=== PATIENT | female | born 1955 | race Caucasian/White ===

== ENCOUNTER → 2018-01-16 14:40 | Outpatient (CLI) | payer SELFPAY ==
[2018-01-16 17:18] LABS: Hemoglobin A1c 8.7 % (4.2-6.3)
== END ==
PROVIDERS: Family Provider Internal Medicine; PCP Internal Medicine; Visit Provider Internal Medicine
DX: E11.9 Type 2 diabetes mellitus without complications (principal)
CPT/HCPCS: 36415; 83036

== ENCOUNTER 2018-02-21 06:59 | Day surgery (SDC) | payer SELFPAY ==
[2018-02-21] VITALS (7 sets, daily range): BP systolic 113–124; BP diastolic 69–78; PULSE 61–79; RESP 16; TEMP 36.5–36.7; O2SAT 97–100; BMI 25.1
--- NOTE | 2018-02-21 08:29 | COLBX_PTH ---
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 Najma Carter MD : 1955 BED: DIS: 02/21/2018 SPEC #: [id number] RECD: 02/21/18 13:31 STATUS: RICARDO SHARON #: [id number] KUSHAL: 02/21/18 08:[address]: Najma Carter DEPT: SURGICAL PATHOLOGY RECD BY: Alexandr Sotomayor ENTERED: 02/21/18 14:27 SP TYPE: COLON BX OTHR DR: Dr. Ja Pringle MD Tissues: Transverse colon Procedures: Surgery Specimen Level IV HEADER OPERATION: Colonoscopy with biopsy PRE-OP DIAGNOSIS: Screening TISSUE SUBMITTED: Transverse biopsy MICROSCOPIC DIAGNOSIS Transverse colon, biopsy: Melanosis coli. AM:vianca 02/22/18 MICROSCOPIC DESCRIPTION Slides are reviewed. GROSS DESCRIPTION Received in fixative is one container labeled with the patient's name and designated transverse biopsy. The specimen consists of two irregular fragments of light lunsford soft tissue that in aggregate measure 0.7 x 0.3 x 0.1 cm. The specimen is totally submitted in one cassette. / AM:vianca 02/21/18 TC:5 CPT: 63772
[2018-02-21 08:51] LABS: Bedside Glucose 159 mg/dL (70-110)
--- NOTE | 2018-02-21 09:34 | PCM.OPRPT ---
Report of Operation Date of Procedure: 02/21/18 Pre-Operative Diagnosis: Screening for colon cancer Post-Operative Diagnosis: Tiny white mucosal lesions throughout the colon, biopsied Surgery/Procedure Performed:: Colonoscopy with biopsy Type of Anesthesia:: MAC Anesthesiologist: Rubens Telles Specimen's removed: Transverse colon biopsy of lunsford-white lesions Estimated Blood Loss (mL): Minimal Description of Procedure: Procedure: Colonoscopy After reviewing the risks benefits, the patient was deemed in satisfactory condition to undergo procedure. After obtaining informed consent, the scope was passed under direct visualization. Throughout the procedure, the patient's blood pressure pulse and position saturations were monitored continuously anesthesia. The colonoscope was introduced through the anus and advanced to the cecum, identified by the appendiceal orifice, IC valve and transillumination. The colonoscopy was performed without difficulty. The patient tolerated procedure well. Quality of bowel prep was good. Findings: The perianal and digital rectal exam were normal. There were tiny white mucosal lesions throughout the entire colon. These were biopsied in the transverse colon. Otherwise the colon (entire examined portion) appeared normal. Retroflexed view of the distal rectum and anal verge was normal and showed no anal or rectal abnormalities Impression: 1. Any white mucosal lesions throughout colon, biopsied 2. The distal rectal and anal verge were normal on retroflexed view. Recommendations: Await biopsies Repeat colonoscopy in 5-10 years for screening purposes depending on biopsy Addendum: pathology c/w melanosis coli, repeat colonoscopy in 10 years. Also d/w pt via phone. - Complications None
--- NOTE | 2018-02-21 09:37 | OP.PCM_ITS ---
Report of Operation Date of Procedure: 02/21/18 Pre-Operative Diagnosis: Screening for colon cancer Post-Operative Diagnosis: Tiny white mucosal lesions throughout the colon, biopsied Surgery/Procedure Performed:: Colonoscopy with biopsy Type of Anesthesia:: MAC Anesthesiologist: Rubens Telles Specimen's removed: Transverse colon biopsy of lunsford-white lesions Estimated Blood Loss (mL): Minimal Description of Procedure: Procedure: Colonoscopy After reviewing the risks benefits, the patient was deemed in satisfactory condition to undergo procedure. After obtaining informed consent, the scope was passed under direct visualization. Throughout the procedure, the patient's blood pressure pulse and position saturations were monitored continuously anesthesia. The colonoscope was introduced through the anus and advanced to the cecum, identified by the appendiceal orifice, IC valve and transillumination. The colonoscopy was performed without difficulty. The patient tolerated procedure well. Quality of bowel prep was good. Findings: The perianal and digital rectal exam were normal. There were tiny white mucosal lesions throughout the entire colon. These were biopsied in the transverse colon. Otherwise the colon (entire examined portion ) appeared normal. Retroflexed view of the distal rectum and anal verge was normal and showed no anal or rectal abnormalities Impression: 1. Any white mucosal lesions throughout colon, biopsied 2. The distal rectal and anal verge were normal on retroflexed view. Recommendations: Await biopsies Repeat colonoscopy in 5-10 years for screening purposes depending on biopsy Addendum: pathology c/w melanosis coli, repeat colonoscopy in 10 years. Also d/ w pt via phone. - Complications None
== END 2018-02-21 09:30 | disposition home or self-care (01) ==
LOC: EN 07:06 → AC 07:06
PROVIDERS: Family Provider Internal Medicine; PCP Internal Medicine; Visit Provider Surgery
PROC: 0DJD8ZZ Inspection of Lower Intestinal Tract, Via Natural or Artificial Opening Endoscopic (ICD-10-PCS; CPT 45378; principal; 2018-02-21 07:55)
DX: Z12.11 Encounter for screening for malignant neoplasm of colon (principal); K63.89 Other specified diseases of intestine; E11.9 Type 2 diabetes mellitus without complications; Z79.84 Long term (current) use of oral hypoglycemic drugs; Z79.899 Other long term (current) drug therapy
CPT/HCPCS: 45380; 82962; 88305; J7120

== ENCOUNTER → 2018-09-25 10:50 | Outpatient (CLI) | payer SELFPAY ==
[2018-09-25 11:47] LABS: Absolute Lymphocyte Count 2.05 X10^3/ul (0.83-4.51); Absolute Neutrophil Count 4.2 X10^3/uL (2.0-7.7); Basophil# 0.01 X10^3/uL; Basophil% 0.1 % (0-1); Eosinophil# 0.12 X10^3/uL; Eosinophils% 1.7 % (0-5); Hematocrit 43.1 % (37-47); Hemoglobin 14.7 g/dl (12.0-15.0); Lymphocyte # 2.05 X10^3/ul (4.0); Lymphocyte % 29.9 % (19-41); Mean Corp Hgb Conc 34.1 g/gl (32-36); Mean Corpuscular Hgb 28.7 pg (27.0-32.0); Mean Platelet Vol. 10.8 fl (6.2-12.0); Monocyte% 7.3 % (0-10); Neutrophil # 4.17 X10^3/uL (2.7-7.7); Neutrophil % 60.9 % (47-70); Platelet Count 190 K/mm3 (150-450); RBC Distribution Width CV 12.9 % (11.6-14.6); RBC Distribution Width SD 38.8 fl (35.1-43.9); Red Blood Count 5.13 M/mm3 (4.2-5.4); White Blood Count 6.9 K/mm3 (4.4-11.0)
[2018-09-25 11:48] LABS: POSITIVE COUNT NO; POSITIVE DIFFERENTIAL NO; POSITIVE MORPHOLOGY NO
[2018-09-25 12:20] LABS: Vitamin D,25 Hydroxy 29.2 ng/mL (29.95-100.01)
[2018-09-25 12:24] LABS: Anion Gap 5 (5-15); BUN 11 mg/dL (7-18); BUN/Creat Ratio 15.9 RATIO (10-20); Calcium,Total 8.9 mg/dL (8.5-10.1); Chloride 99 mmol/L (98-107); Cholesterol 169 mg/dL (200); Creatinine, Serum 0.69 mg/dL (0.55-1.02); EST Glomerular Filtration Rate 91 mL/min (>60); Est Glom Filt Rate - Afr Amer 110 mL/min (>60); Glucose 200 mg/dL (74-106); High Density Lipoprotein 67 mg/dL; Potassium 4.1 mmol/L (3.5-5.1); Sodium Level 136 mmol/L (136-145); Thyroid Stim Hormone (TSH) 0.48 uIU/mL (0.358-3.74); Triglycerides 61 mg/dL; Very Low Density Lipoprotein 12 mg/dL (5-40)
[2018-09-25 12:25] LABS: Microalbumin,Random Urine 5.6 mg/L (NO RANGE EST.); Microalbumin:Creatinine Ratio 8.5 mg/g CRE (<30 mg/g CRE)
== END ==
PROVIDERS: Family Provider Internal Medicine; PCP Internal Medicine; Referring Provider Nurse Practitioner Family; Visit Provider Nurse Practitioner Family
DX: E11.9 Type 2 diabetes mellitus without complications (principal); E78.5 Hyperlipidemia, unspecified; E55.9 Vitamin D deficiency, unspecified; Z13.29 Encounter for screening for other suspected endocrine disorder
CPT/HCPCS: 36415; 80048; 80061; 82043; 82306; 82570; 83036; 84443; 85025

== ENCOUNTER → 2018-10-30 13:28 | Outpatient (CLI) | payer SELFPAY ==
--- NOTE | 2018-10-30 13:34 | BD_ITS ---
STUDY: DUAL ENERGY X-RAY ABSORPTIOMETRY / DXA REASON FOR EXAM: Female, 62 years old. The patient is postmenopausal. No loss of height. TECHNIQUE: Bone Mineral Density (BMD) measurements of lumbar spine and right hip were obtained. The patient is status post left hip replacement. COMPARISON: None. FINDINGS: Lumbar Spine (L1-L4): g/cm2 (1.298) / T-score (1.1) / Z-score (2.5) Findings are suggestive of normal bone density with a low fracture risk. Right Femur Total: g/cm2 (0.976) / T-score (-0.3) / Z-score (0.8) Right Femoral Neck: g/cm2 (0.991) / T-score (-0.3) / Z-score (1.0) BD/Dexa Bone Density Study IMPRESSION: The patient is considered normal as outlined below according to World Dejuan Organization (WHO) criteria with a low fracture risk. Reference Information: The T-score is the number of standard deviations above or below the standard which is normal for young adults at their peak bone mineral density. The World Health Organization (WHO) interprets the T-scores as follows: Above -1 Normal bone density Between -1 and -2.5 Osteopenia Equal to / or below -2.5 Osteoporosis As a practical clinical guideline, osteopenia may be graded as follows: Mild -1 through -1.5 Moderate -1.6 through -2.0 Severe -2.1 through -2.4 The Z-score is the number of standard deviations above or below age-matched controls. A Z-score of less than -1.5 would be considered abnormal. References: 1. NIH Osteoporosis and Related Bone Diseases http://www.osteo.org 2. International Society for Clinical Densitometry http://www.iscd.org 3. National Osteoporosis Foundation http://www.nof.org Electronically Signed: Avila Lewis MD at 15:39 EST Tel [phone], Service support ,
== END ==
PROVIDERS: Family Provider Internal Medicine; PCP Internal Medicine; Visit Provider Nurse Practitioner Family
DX: Z13.820 Encounter for screening for osteoporosis (principal); Z78.0 Asymptomatic menopausal state
CPT/HCPCS: 77080

== ENCOUNTER → 2020-01-02 | Outpatient (CLI) | payer SELFPAY ==
--- NOTE | 2020-01-02 | IMM_PTH ---
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 Jero Almeida MD : 1955 BED: DIS: 01/02/2020 SPEC #: [id number] RECD: 01/06/20 12:18 STATUS: RICARDO REQ #: [id number] KUSHAL: 01/02/20 00:[address]: Jero Almeida DEPT: IMMUNOHISTOCHEMISTRY RECD BY: Leonora Craft Tissues: Right breast, NOS Procedures: CALPONIN-1 (add) CK5-6 (add) CK8 (add) E-CAD (add) HER2 RENEE (add) KI-67 (add) P53 (add) PA (add) P40 (add) ER (initial) PHYSICIAN & INSTITUTION [place] [address] SPECIMEN INFORMATION: Tissue Source: Right breast, ultrasound-guided needle core biopsy Clinical Info: Right breast mass Specimen Number: [id number] CPT code: 83633, 32790 x6, 24965 x3 METHODOLOGY: Deparaffinized sections of prefer/formalin-fixed tissue or PAP/DQ stained slides are incubated with monoclonal/polyclonal antibodies/oligonucleotide probes. Localization is made via biotin free immunoperoxidase method. Appropriate controls are performed and reacted as expected. Results on target cell population are indicated in the following table: RESULTS: ANTIBODY / CLONE RESULT E-Cad (ECH-6) positive CK8 (38trioS03) positive Calponin-1 (LI304O) negative CK5-6 (D5 & 1684) negative P40 (BC28) negative P53 (DO-7) positive, rare cells, weak Ki-67 (30-9) positive, low MORPHOMETRIC ANALYSIS ER (clone 6F11) >95%, strong intensity PA (clone 16/1E2) 75%, strong intensity Her-2Neu (clone CB11) 0 The prognostic test for HER2 is performed on formalin-fixed paraffin embedded tissue. A 3+ (positive) staining pattern is defined as intense, homogeneous, complete, circumferential membranous staining in >10% of contiguous tumor cells. A similar weak (2+) staining pattern is interpreted as equivocal. DELLA follow-up testing is recommended for all equivocal cases. Positivity/negativity for ER/PA is reported if > or < 1% of the tumor cells are immuno- reactive, respectively. The ASCO/CAP criteria is used for scoring. Reference: Journal of Clinical Oncology, 2013; 31:6831-7606 & 2010; 16:7969-0493. Duration of fixation: 78.5 Hrs; Sample Adequate: Yes. These assays have not been validated on decalcified tissues. Results should be interpreted with caution given the likelihood of false negativity on decalcified specimens. These tests were developed and their performance characteristics determined by [facility]. They may not have been cleared or approved by the U.S. Food and Drug Administration. The FDA has determined that such clearance or approval is not necessary. The above immunohistochemical/dualISH markers are ordered and reviewed by the Pathologist. INTERPRETATION: Right breast, ultrasound-guided needle core biopsy: Invasive ductal carcinoma, nuclear grade 2. Positive for estrogen receptors (favorable prognostic indicator). Positive for progesterone receptors (favorable prognostic indicator). Negative for overexpression of BKK1svf. SJ:vianca 01/07/20
--- NOTE | 2020-01-02 13:00 | BRBX_PTH ---
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 Jero Almeida MD : 1955 BED: DIS: 01/02/2020 SPEC #: [id number] RECD: 01/02/20 14:00 STATUS: RICARDO SHARON #: [id number] KUSHAL: 01/02/20 13:[address]: Jero Almeida DEPT: SURGICAL PATHOLOGY RECD BY: Alexandr Sotomayor Tissues: Right breast, NOS Procedures: Surgery Specimen Level IV HEADER OPERATION: Ultrasound-guided needle core biopsy right breast PRE-OP DIAGNOSIS: Right breast mass TISSUE SUBMITTED: Right breast biopsy ISCHEMIC TIME: <30 seconds FIXATION TIME: 78.5 hours MICROSCOPIC DIAGNOSIS Right breast, ultrasound-guided needle core biopsy: Invasive ductal carcinoma, nuclear grade 2 (1.2 cm in greatest length). See comment. SJ:vianca 01/06/20 COMMENT The tumor also shows focal necrosis. Immunohistochemistry ([id number]) supports the above diagnosis. ER/UT/Rvg3yss studies are being performed on sections of tumor and the results from this study will be reported separately ([id number]). Case has been reviewed in consultation with Dr. Latham who concurs with the above diagnosis. IDC:AM MICROSCOPIC DESCRIPTION Slides are reviewed. GROSS DESCRIPTION Received in fixative is one container labeled with the patient's name and designated right breast biopsy. The specimen consists of a single core of lunsford-white soft tissue measuring 1.5 cm in length and 0.1 cm in average diameter. The specimen is submitted in its entirety in one cassette. / AM:vianca 01/03/20 TC:0 CPT: 79126 ADDENDUM ADDENDUM ADDENDUM ADDENDUM ADDENDUM ADDENDUM ADDENDUM ADDENDUM ADDENDUM ADDENDUM 02/25/2020 09:45 ADDENDUM 02/25/2020 09:45 ADDENDUM 02/25/2020 09:45 ADDENDUM 02/25/2020 09:45 ADDENDUM 02/25/2020 09:45 This addendum is added to incorporate an outside pathology consultation report. The case was examined at [facility] (#[id number]) and the following diagnosis was rendered. Right breast, ultrasound-guided needle core biopsy: Invasive ductal carcinoma, provisional histologic grade 2. Please see complete above mentioned consultation report in EMR
[2020-01-02 13:19] VITALS: BMI 24.1
== END | disposition home or self-care (01) ==
LOC: LABSPEC 01-03 10:44
PROVIDERS: Visit Provider Surgery
DX: C50.911 Malignant neoplasm of unspecified site of right female breast (principal)
CPT/HCPCS: 88305; 88341; 88342

== ENCOUNTER → 2020-01-14 11:06 | Outpatient (CLI) | payer SELFPAY ==
[2020-01-02 13:19] VITALS: BMI 24.1
--- NOTE | 2020-01-14 11:17 | MRI_ITS ---
STUDY: BILATERAL BREAST MR WITHOUT AND WITH CONTRAST REASON FOR EXAM: Female, 64 years old. RIGHT breast CA -- checking size and if lymph node involvement, patient refusing mamm, rt bx 01/02/20 TECHNIQUE: Multi-sequence multi-echo imaging of both breasts was performed with a dedicated breast coil. T1-weighted and T2-weighted images were performed before the administration of contrast. T1-weighted images were also performed after the administration of IV dotarem 13 ml without complications. COMPARISON: None. Patient refuses mammograms. No prior ultrasound or breast-related exams are available for review. FINDINGS: RIGHT BREAST: The breast tissue is fatty with no background enhancement. There is a 6.1 x 4.5 cm irregularly marginated, heterogeneous, abnormal enhancing mass seen in the superior and lateral aspect of the right breast. This mass is located approximately 4 cm from the nipple. This does correlate to the area that was biopsied and shown to represent a malignancy. No additional masses are seen in the right breast. No abnormal right axillary lymph nodes are seen. LEFT BREAST: The breast tissue is fatty with no background enhancement. There are no abnormal enhancing masses or areas of non-mass enhancement in the left breast. There are no enlarged or abnormal lymph nodes. There is no abnormality in the visualized regions of the chest or liver. MRI/Breast Bilateral W/O and W IMPRESSION: There is a malignant appearing mass in the right breast. Surgical consultation is recommended as well as radiation oncology and medical oncology consultation. Short-term 6 month follow-up mammogram of the right breast is recommended if the patient opts to have a lumpectomy. CATEGORY: BIRADS Category 6: Known Biopsy-Proven Malignancy - Appropriate Action Should Be Taken. A letter regarding these results will be sent to the patient by the facility within 30 days. Electronically Signed: Kayla Mendoza DO at 9:41 EST Tel , Service support ,
== END ==
PROVIDERS: PCP Internal Medicine; Referring Provider Surgery; Visit Provider Surgery
DX: C50.919 Malignant neoplasm of unspecified site of unspecified female breast (principal)
CPT/HCPCS: 77049; A9575; A4216; C8908

== ENCOUNTER → 2021-01-05 12:46 | Outpatient (CLI) | payer MEDICARE, BC, SELFPAY ==
[2020-01-16 14:26] VITALS: BMI 24.1
--- NOTE | 2021-01-05 12:54 | BD_ITS ---
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 COMPARISON: Comparison is made with prior study dated 10/30/2018. FINDINGS: Lumbar Spine (L1-L4): g/cm2 (1.375) / T-score (1.5) / Z-score (3.0) Findings are suggestive of normal bone density with a low fracture risk. Right Femur Total: g/cm2 (0.945) / T-score (-0.5) / Z-score (0.7) Right Femoral Neck: g/cm2 (1.005) / T-score (-0.2) / Z-score (1.2) The T-Scores on the most recent prior examination were: Lumbar Spine (L1-L4): There has been worsening of bone density since the previous examination. Right Femur Total: which represents a worsening of 3.2%. BD/Dexa Bone Density Study IMPRESSION: The patient is considered normal as outlined below according to World Dejuan Organization (WHO) criteria with a low fracture risk. There has been worsening of bone density since the previous examination. Reference Information: The T-score is the number of standard deviations above or below the standard which is normal for young adults at their peak bone mineral density. The World Health Organization (WHO) interprets the T-scores as follows: Above -1 Normal bone density Between -1 and -2.5 Osteopenia Equal to / or below -2.5 Osteoporosis As a practical clinical guideline, osteopenia may be graded as follows: Mild -1 through -1.5 Moderate -1.6 through -2.0 Severe -2.1 through -2.4 The Z-score is the number of standard deviations above or below age-matched controls. A Z-score of less than -1.5 would be considered abnormal. References: 1. NIH Osteoporosis and Related Bone Diseases www osteo.org 2. International Society for Clinical Densitometry www iscd.org 3. National Osteoporosis Foundation www nof.org Electronically Signed: Avila Lewis MD at 14:05 EST , Service support ,
== END ==
PROVIDERS: PCP Family Medicine; Referring Provider Family Medicine; Visit Provider Family Medicine
DX: Z78.0 Asymptomatic menopausal state (principal)
CPT/HCPCS: 77080

== ENCOUNTER 2021-04-14 14:15 | Outpatient (CLI) | payer MEDICARE, BC, SELFPAY ==
[2021-04-14] VITALS (7 sets, daily range): BP systolic 105–124; BP diastolic 60–73; PULSE 88–93; RESP 16–18; TEMP 36.9–37.7; O2SAT 94–98; BMI 24.1; BMI 24.4
[2021-04-14] MEDS: 0.9% Saline Lock 10 ML Syringe IV ×2 (15:16→16:07)
== END 2021-04-14 17:15 | disposition home or self-care (01) ==
LOC: ICUOUT 14:18 → ICU 14:18
PROVIDERS: PCP Family Medicine; Referring Provider Nurse Practitioner Family; Visit Provider Nurse Practitioner Family
DX: Z23 Encounter for immunization (principal); U07.1 COVID-19; E11.9 Type 2 diabetes mellitus without complications
CPT/HCPCS: J7050; M0243; A4216; Q0240

== ENCOUNTER → 2023-01-25 | Outpatient (CLI) | payer BC, MEDICAID, SELFPAY ==
--- NOTE | 2023-01-25 08:37 | BD_ITS ---
STUDY: DUAL ENERGY X-RAY ABSORPTIOMETRY / DXA REASON FOR EXAM: Female, 67 years old. M85.89 TECHNIQUE: Bone Mineral Density (BMD) measurements of lumbar spine and right hip were obtained. COMPARISON: Comparison is made with prior study dated January 05, 2021. FINDINGS: Lumbar Spine (L1-L4): g/cm2 (1.106) / T-score (0.5) / Z-score (2.4) Findings are suggestive of normal bone density with a low fracture risk. Right Femur Total: g/cm2 (0.871) / T-score (-0.6) / Z-score (0.8) Right Femoral Neck: g/cm2 (0.802) / T-score (-0.4) / Z-score (1.2) The T-Scores on the most recent prior examination were: Lumbar Spine (L1-L4): There has been worsening of bone density since the previous examination. Right Femur Total: which represents a worsening of 1.2%. BD/Dexa Bone Density Study IMPRESSION: The patient is considered normal as outlined below according to World Dejuan Organization (WHO) criteria with a low fracture risk. There has been worsening of bone density since the previous examination. Reference Information: The T-score is the number of standard deviations above or below the standard which is normal for young adults at their peak bone mineral density. The World Health Organization (WHO) interprets the T-scores as follows: Above -1 Normal bone density Between -1 and -2.5 Osteopenia Equal to / or below -2.5 Osteoporosis As a practical clinical guideline, osteopenia may be graded as follows: Mild -1 through -1.5 Moderate -1.6 through -2.0 Severe -2.1 through -2.4 The Z-score is the number of standard deviations above or below age-matched controls. A Z-score of less than -1.5 would be considered abnormal. References: 1. NIH Osteoporosis and Related Bone Diseases www osteo.org 2. International Society for Clinical Densitometry www iscd.org 3. National Osteoporosis Foundation www nof.org Electronically Signed: Avila Lewis MD at 13:42 EST ,
== END | disposition home or self-care (01) ==
PROVIDERS: PCP Family Medicine; Visit Provider Internal Medicine Hematology & Oncology
DX: Z13.820 Encounter for screening for osteoporosis (principal); Z79.811 Long term (current) use of aromatase inhibitors; M85.89 Other specified disorders of bone density and structure, multiple sites
CPT/HCPCS: 77080

== ENCOUNTER 2024-07-15 10:45 | Emergency (ER) | payer MEDICARE, SELFPAY ==
[2024-07-15 10:45] VITALS: BP 140/84; PULSE 89; RESP 14; TEMP 36.6; O2SAT 96; BMI 26.5
--- NOTE | 2024-07-15 11:12 | CT_ITS ---
STUDY: CT ABDOMEN AND PELVIS WITH CONTRAST REASON FOR EXAM: Female, 68 years old. Left flank pain and left groin pain. RADIATION DOSAGE (If Supplied By Facility): CTDIvol = ( 10.48 ) mGy, DLP = ( 707.20 ) mGycm TECHNIQUE: Transaxial images were obtained from the dome of the diaphragm to the symphysis pubis without oral contrast. IV 100mL Isovue-370 was administered. Sagittal and coronal images were reconstructed. Individualized dose optimization techniques were used for this CT. COMPARISON: None. FINDINGS: The patient is status post right mastectomy. Calcified granuloma in the anterior aspect of the left lower lobe. The visualized portions of the heart are within normal limits. Normal liver. Normal gallbladder and extrahepatic biliary system. Normal spleen. Normal pancreas. Normal bilateral adrenal glands. Normal right kidney. Normal left kidney. There is a small hiatal hernia. Normal small intestine. There are scattered colonic diverticula consistent with diverticulosis. The appendix is visualized and appears normal. Normal abdominal aorta. Normal inferior vena cava. Normal retroperitoneum. Normal urinary bladder. There is absence of the uterus consistent with a prior hysterectomy. Normal abdominal wall. There are degenerative changes of the visualized lumbar spine. Status post left total hip replacement. Mild degree of levoscoliosis. CT/Abdomen/Pelvis W IV Cont ONLY IMPRESSION: Sigmoid diverticulosis. No evidence of ureteral obstruction. Electronically Signed: Avila Lewis MD at 14:12 EDT ,
--- NOTE | 2024-07-15 11:14 | ED.VIS.GI ---
HPI HPI - GI History of Present Illness Chief Complaint: Abd Pain Informant: patient and family Narrative Narrative: 68-year-old female presenting to the emergency room with abdominal pain. Patient states that she has had pain left hip left back left abdomen. She went to the chiropractor she is having difficulty putting any weight on the leg. The chiropractor reportedly pushed on her right lower quadrant and had concerns for appendicitis so sent her to emergency. Patient notes she has not had a bowel movement yet this morning. She denies any anorexia/nausea vomiting. No reported fevers. She states she did not know that she had right-sided abdominal pain until it was pushed on. She denies any urinary symptoms. No rashes. She states that she was seeing physical therapy for possible sciatica left hip pain and also seen Dr. Bourgeois. She states that the pain on that left leg hip area increased last week and she is due to go to PT tomorrow. It is because that increased pain that she was seen chiropractor today. [facility] Medical History COVID-19 Breast cancer, right Breast mass, right Type 2 diabetes mellitus Hearing loss Neuropathy IBS (irritable bowel syndrome) Hyperlipemia Diabetes Asthma Seasonal allergies Home Medications ?Medication ?Instructions ?Recorded ?Last Taken ?Type ascorbic acid (vitamin C) 1,000 mg 1,000 mg PO BID 12/13/17 04/14/21 History tablet glucosamine sulfate 1,000 mg 1,000 mg PO DAILY 12/13/17 04/14/21 History capsule Oronia Vasquez 2 cap PO DAILY 02/19/18 04/14/21 History apple cider vinegar 300 mg tablet 10 ml PO DAILY 02/19/18 04/14/21 History anastrozole 1 mg tablet 1 mg PO DAILY cancer 04/14/21 04/14/21 History glimepiride 2 mg tablet 1 mg PO DAILY 04/14/21 04/14/21 History meloxicam 7.5 mg tablet 7.5 mg PO BID 07/15/24 Unknown History oxycodone-acetaminophen 5 mg-325 1 tab PO Q6H PRN PRN Pain 3 days 07/15/24 Unknown Rx mg tablet #12 TABLETS Allergy/AdvReac Type Severity Reaction Status Date / Time No Known Allergies Allergy Verified 07/15/24 10:47 Family History Father Arthritis Cancer brain Brother Cancer Arthritis Hypertension Seizures Diabetes Mother Breast cancer Daughter Epilepsy Grandmother Diabetes Surgical History History of breast biopsy (~12/2019) History of colonoscopy History of D&C History of left hip replacement History of tonsillectomy Social History Smoking Status: Never smoker alcohol intake: never substance use type: does not use what type of physical activity do you participate in: walking and bicycling frequency: 5-6 times per week seatbelt use: always do you feel safe at home: Yes ROS ROS ED Constitutional Constitutional ED: Denies chills, fever(s) or weight loss Eyes Eyes: Denies change in vision or diplopia ENT ENT ED: Denies ear pain, rhinorrhea or sore throat Cardiovascular Cardiovascular: Denies chest pain, orthopnea, palpitations or racing heartbeat Respiratory/Chest Respiratory/Chest: Denies cough, dyspnea or orthopnea Gastrointestinal Gastrointestinal: Reports abdominal pain; Denies diarrhea, nausea or vomiting Genitourinary Genitourinary ED: Denies dysuria, hematuria or urinary frequency Musculoskeletal Musculoskeletal: Reports back pain and other Details: Left hip pain ; Denies arthralgias or myalgias Integumentary Denies abscess or rash Neurologic Neurologic: Denies headache(s) or weakness Psychiatric Psychiatric: Denies anxiety, depression, suicidal ideation or suicidal thoughts Endocrine Endocrinology: Denies polydipsia, polyphagia or polyuria Allergic/Immunologic Allergic/Immunologic ED: Denies mouth swelling, tongue swelling or urticaria EXAM Physical Exam Const Vital Signs: 07/15/24 10:45 07/15/24 12:45 07/15/24 14:09 Temperature 98 F Temperature Source Temporal Pulse Rate 89 80 82 Respiratory Rate 14 18 18 Blood Pressure 140/84 H 147/80 H 157/83 H Blood Pressure Mean 102 102 107 Pulse Ox 96 99 99 Oxygen Delivery Method Room Air Room Air Room Air Positive well nourished and well developed General Appearance ED: well developed HEENT Reports normocephalic, head/scalp atraumatic and moist mucous membranes Eyes PERRL and EOMs intact bilaterally Neck no lymphadenopathy, supple and no JVD Resp normal respiratory effort and clear to auscultation bilaterally Cardio regular rate, regular rhythm and no murmurs GI non-tender GI Narrative: No rashes on the skin Inspection: Negative for abdominal distention Auscultation: normoactive bowel sounds Palpation: soft and tender RLQ; Negative for guarding, rigid, hepatomegaly, splenomegaly, hernia, mass, pulsatile mass or rebound tenderness present Back/Spine no CVA tenderness and normal ROM Extremity normal to inspection General Extremety ED: Negative for edema General Extremity: Negative for edema Neuro oriented x3 and CN's II-XII intact bilaterally Sensorium / Orientation: alert Motor Exam: strength 5/5 throughout Psych mental status grossly normal Mood & Affect: Negative for depressed or tearful Skin no rashes or lesions noted and no wounds MDM MDM MDM Narrative Medical decision making narrative: Differential diagnosis includes but not limited to appendicitis colitis epiploic appendagitis mesenteric adenitis UTI/pyelonephritis ureterolithiasis referred pain White count 5.8 with hemoglobin of 16 BMP shows a sodium of [address] then pelvis with IV contrast demonstrates no obvious ureterolithiasis there is diverticulosis the appendix is seen and is negative. Patient required treatment with Toradol and morphine and her to get her to the down with her knees flat. She is now able to do so states the bed is really uncomfortable and she started to have pain again in that left hip area. I would encourage her to go to physical therapy tomorrow we will see if they can help her out with the pain. I concern her for some pain medicine at home. I did recommend in addition to the fiber that she takes also starting some MiraLAX or stool softener as there is a lot of increased stool on that right side of the abdomen. And her decreased mobility and water intake over the past few days most likely contributing some constipation. Patient notes understanding the plan History & Record Review Discussion w/independent historian: Patient and Family Lab Data Attestation: I reviewed the patient's lab results. Labs: Laboratory Results - last 24 hr 07/15/24 11:30 WBC 5.8 RBC 5.71 H Hgb 16.0 H Hct 47.8 H MCV 83.7 MCH 28.0 MCHC 33.5 RDW Std Deviation 37.8 RDW Coeff of Mj 12.4 Plt Count 158 MPV 10.3 Immature Gran % (Auto) 0.200 Neut % (Auto) 65.8 Lymph % (Auto) 23.2 [place] % (Auto) 7.9 Eos % (Auto) 2.6 Baso % (Auto) 0.3 Absolute Neuts (auto) 3.8 Absolute Lymphs (auto) 1.35 Nucleated RBC % 0 Sodium 133 L Potassium 4.9 Chloride 102 Carbon Dioxide 26.0 Anion Gap 5 BUN 18 Creatinine 0.78 Estim Creat Clear Calc 62.32 Est GFR (MDRD) Af Amer 95 Est GFR (MDRD) Non-Af 78 BUN/Creatinine Ratio 23.1 H Glucose 278 H Calcium 9.6 Radiography Diagnostic Testing: Clinical Impression(s) from Imaging Studies Abdomen/Pelvis CT 07/15/24 11:12 IMPRESSION: Sigmoid diverticulosis. No evidence of ureteral obstruction. Electronically Signed: Avila Lewis MD at 14:12 EDT , Discharge Plan Triage Chief Complaint: Abd Pain ED Provider: Jero Scherer Dx/Rx/DC Orders Clinical Impression: Abdominal pain, Diabetes, Acute pain of left lower extremity, Acute constipation Instructions: Abdominal Pain Prescriptions: New oxycodone-acetaminophen 5-325 mg tablet 1 tab PO Q6H PRN PRN (Reason: Pain) 3 Days Qty: 12 0RF No Action glucosamine sulfate 1,000 mg capsule 1,000 mg PO DAILY ascorbic acid (vitamin C) 1,000 mg tablet 1,000 mg PO BID glimepiride 2 mg tablet 1 mg PO DAILY apple cider vinegar 300 MG tablet 10 ml PO DAILY Oronia Vasquez 2 cap PO DAILY anastrozole 1 mg tablet 1 mg PO DAILY meloxicam 7.5 mg tablet 7.5 mg PO BID Primary Care Provider: RHYS LOPES Referrals: Raad Fermin DO [Non-Staff] - As Needed Aashish Bourgeois MD [Med Staff - Active Staff] - 3-5 Days if not improving Print Language: Colombian Disposition Disposition: Home, Self Care
[2024-07-15 11:45] LABS: Absolute Lymphocyte Count 1.35 X10^3/uL (0.83-4.51); Absolute Neutrophil Count 3.8 X10^3/uL (2.0-7.7); Basophil# 0.02 X10^3/uL; Basophil% 0.3 % (0-1); Eosinophil# 0.15 X10^3/uL; Eosinophils% 2.6 % (0-5); Hematocrit 47.8 % (37-47); Lymphocyte # 1.35 X10^3/ul (0.83-4.51); Lymphocyte % 23.2 % (19-41); Mean Corp Hgb Conc 33.5 g/dL (32-36); Mean Corpuscular Volume 83.7 fL (81-99); Mean Platelet Vol. 10.3 fl (6.2-12.0); Monocyte# 0.46 X10^3/uL; Monocyte% 7.9 % (0-10); NRBC Flagged by Analyzer 0 % (0-5); Neutrophil # 3.83 X10^3/uL (2.7-7.7); Neutrophil % 65.8 % (47-70); Platelet Count 158 K/mm3 (150-450); RBC Distribution Width CV 12.4 % (11.6-14.6); RBC Distribution Width SD 37.8 fl (35.1-43.9); Red Blood Count 5.71 M/mm3 (4.2-5.4); White Blood Count 5.8 K/mm3 (4.4-11.0)
[2024-07-15 11:54] LABS: Anion Gap 5 (5-15); BUN 18 mg/dL (7-18); BUN/Creat Ratio 23.1 RATIO (10-20); Calcium,Total 9.6 mg/dL (8.5-10.1); Chloride 102 mmol/L (98-107); Creatinine, Serum 0.78 mg/dL (0.55-1.02); EST Glomerular Filtration Rate 78 mL/min (>60); Est Glom Filt Rate - Afr Amer 95 mL/min (>60); Estimated Creatinine Clearance 62.32 ml/min; Glucose 278 mg/dL (74-106); Potassium 4.9 mmol/L (3.5-5.1); Sodium Level 133 mmol/L (136-145)
[2024-07-15 12:45] VITALS: BP 147/80; PULSE 80; RESP 18; O2SAT 99
[2024-07-15] MEDS: Ondansetron 4 MG/2 ML Vial IV (13:13)
[2024-07-15] MEDS: Ketorolac 15 MG/ML Vial IV (13:13)
[2024-07-15] MEDS: Morphine 4 MG/ML Syringe IV (13:13)
[2024-07-15 14:09] VITALS: BP 157/83; PULSE 82; RESP 18; O2SAT 99
[2024-07-15 14:49] VITALS: BP 147/71; PULSE 82; RESP 14; TEMP 36.6; O2SAT 97
--- NOTE | 2024-07-15 14:59 | ED.RN ---
ATTEMPTED TO GIVE D/C PAPERWORK TO PT AND REVIEW, PT ARGUED AND OVER TALKED THIS RN. I DONT BELIEVE THE PT HEARD ANYTHING THAT THIS RN ATTEMPTED TO EXPLAIN.
== END 2024-07-15 15:00 | disposition home or self-care (01) ==
PROVIDERS: Emergency Provider Emergency Medicine; PCP Family Medicine; Visit Provider Emergency Medicine
DX: R10.31 Right lower quadrant pain (principal); E11.40 Type 2 diabetes mellitus with diabetic neuropathy, unspecified; K59.00 Constipation, unspecified; E78.5 Hyperlipidemia, unspecified; M79.605 Pain in left leg; J45.909 Unspecified asthma, uncomplicated; M25.552 Pain in left hip; M54.9 Dorsalgia, unspecified
CPT/HCPCS: 74177; 80048; 85025; 96374; 96375; 99282; Q9967; A4216; J2405

== ENCOUNTER → 2024-07-18 | Outpatient (CLI) | payer MEDICARE, SELFPAY ==
[2024-07-18 09:43] LABS: Erythrocyte Sedimentation Rate 6 mm/hr (0-30)
[2024-07-18 09:44] LABS: Absolute Lymphocyte Count 0.95 X10^3/uL (0.83-4.51); Absolute Neutrophil Count 2.9 X10^3/uL (2.0-7.7); Basophil# 0.02 X10^3/uL; Basophil% 0.4 % (0-1); Eosinophil# 0.17 X10^3/uL; Eosinophils% 3.8 % (0-5); Hematocrit 46.7 % (37-47); Hemoglobin 15.6 g/dL (12.0-15.0); Lymphocyte # 0.95 X10^3/ul (0.83-4.51); Lymphocyte % 21.3 % (19-41); Mean Corp Hgb Conc 33.4 g/dL (32-36); Mean Corpuscular Hgb 28.1 pg (27.0-32.0); Mean Corpuscular Volume 84.1 fL (81-99); Mean Platelet Vol. 10.5 fl (6.2-12.0); Monocyte# 0.39 X10^3/uL; Monocyte% 8.7 % (0-10); NRBC Flagged by Analyzer 0 % (0-5); Neutrophil # 2.93 X10^3/uL (2.7-7.7); Neutrophil % 65.6 % (47-70); Platelet Count 170 K/mm3 (150-450); RBC Distribution Width CV 12.6 % (11.6-14.6); RBC Distribution Width SD 38.6 fl (35.1-43.9); Red Blood Count 5.55 M/mm3 (4.2-5.4); White Blood Count 4.5 K/mm3 (4.4-11.0)
[2024-07-18 10:22] LABS: CRP < 2.90 mg/L (0.0-3.0)
== END | disposition home or self-care (01) ==
LOC: LAB 08:54
PROVIDERS: PCP Family Medicine; Referring Provider Specialist; Visit Provider Specialist
DX: M25.552 Pain in left hip (principal); M21.752 Unequal limb length (acquired), left femur
CPT/HCPCS: 36415; 85025; 85652; 86140

== ENCOUNTER → 2024-08-20 | Outpatient (CLI) | payer MEDICARE, SELFPAY ==
[2024-08-20 12:30] LABS: Anion Gap 5 (5-15); BUN 20 mg/dL (7-18); BUN/Creat Ratio 28.1 RATIO (10-20); Chloride 105 mmol/L (98-107); Creatinine, Serum 0.71 mg/dL (0.55-1.02); EST Glomerular Filtration Rate 87 mL/min (>60); Est Glom Filt Rate - Afr Amer 105 mL/min (>60); Glucose 188 mg/dL (74-106); Potassium 4.4 mmol/L (3.5-5.1); Sodium Level 137 mmol/L (136-145)
== END | disposition home or self-care (01) ==
LOC: LAB 11:24
PROVIDERS: PCP Family Medicine; Referring Provider Specialist; Visit Provider Specialist
DX: Z01.818 Encounter for other preprocedural examination (principal)
CPT/HCPCS: 36415; 80048

== ENCOUNTER → 2024-08-23 | Outpatient (CLI) | payer MEDICARE, SELFPAY ==
--- NOTE | 2024-08-23 14:55 | CT_ITS ---
STUDY: CT ABDOMEN AND PELVIS WITH CONTRAST REASON FOR EXAM: Female, 68 years old. ABN FINDINGS RADIATION DOSAGE (If Supplied By Facility): CTDIvol = ( 16.81 ) mGy, DLP = ( 1658.64 ) mGycm TECHNIQUE: Oral and amp; IV Readi-CAT and amp; 100mL Isovue-370 was administered. Transaxial images were obtained from the dome of the diaphragm to the symphysis pubis. Multiplanar coronal and sagittal images were reformatted. The protocol utilizes one or more of the following dose reduction techniques: automated exposure control, adjustment of mA and/or kV according to patient size,and/or use of iterative reconstruction technique. COMPARISON: Jul 15 2024 FINDINGS:uo The visualized lung bases demonstrate up to 8 mm peripheral nodules. The visualized portions of the heart are within normal limits. Normal liver. Normal gallbladder and extrahepatic biliary system. Normal spleen. Normal pancreas. 1.4 cm right adrenal nodule. Normal visualized stomach. Normal small intestine. Fecal retention in the colon. The appendix is visualized and appears normal. Normal abdominal aorta. No retroperitoneal adenopathy. Normal right kidney. Normal left kidney. Normal urinary bladder. Normal abdominal wall. There is a left hip prosthesis in place. Mild degenerative vertebral changes and slight scoliosis. Angle and CT/CT Abd/Pelvis W/WO Contrast IMPRESSION: Right adrenal nodule. Colonic fecal retention. Peripheral nodules in the lung bases similar to previous study. Electronically Signed: William Lauren DO at 16:31 EDT ,
== END | disposition home or self-care (01) ==
PROVIDERS: PCP Family Medicine; Referring Provider Specialist; Visit Provider Specialist
DX: R93.89 Abnormal findings on diagnostic imaging of other specified body structures (principal); M25.552 Pain in left hip
CPT/HCPCS: 74178; Q9967

== ENCOUNTER → 2025-09-11 | Outpatient (CLI) | payer MEDICARE, SELFPAY ==
--- NOTE | 2025-09-11 13:14 | EKG12_ITS ---
Test Reason : PREOP Blood Pressure : */* mmHG Vent. Rate : 74 BPM Atrial Rate : 74 BPM P-R Int : 140 ms QRS Dur : 74 ms QT Int : 412 ms P-R-T Axes : 53 73 55 degrees QTcB Int : 457 ms Normal sinus rhythm Normal ECG Confirmed by ANNE RODRIGUEZ, SUNIL ([id number]), web content editor ALEJANDRO JEROME ([id number]) on 09/12/2025 6:35:38 AM Referred By: Johnny Bailey Confirmed By: SUNIL RODRÍGUEZ MD
[2025-09-11 14:55] LABS: Hematocrit 44.9 % (37-47); Hemoglobin 15.3 g/dL (12.0-15.0); Immature Granulocytes Count 0.020 X10^3/uL (0.0-0.0); Mean Corp Hgb Conc 34.1 g/dL (32-36); Mean Corpuscular Volume 85.7 fL (81-99); Mean Platelet Vol. 11.1 fl (6.2-12.0); NRBC Flagged by Analyzer 0 % (0-5); Platelet Count 152 K/mm3 (150-450); RBC Distribution Width CV 12.2 % (11.6-14.6); RBC Distribution Width SD 38.2 fl (35.1-43.9); Red Blood Count 5.24 M/mm3 (4.2-5.4); White Blood Count 4.8 K/mm3 (4.4-11.0)
[2025-09-11 15:44] LABS: Anion Gap 12 (5-15); BUN 20 mg/dL (4-19); BUN/Creat Ratio 33.1 RATIO (10-20); Calcium,Total 9.9 mg/dL (7.6-11.0); Carbon Dioxide 23.2 mmol/L (21.0-32.0); Chloride 101 mmol/L (98-108); Glucose 145 mg/dL (70-99); Potassium 4.0 mmol/L (3.3-5.1)
== END | disposition home or self-care (01) ==
PROVIDERS: PCP Family Medicine; Referring Provider Student in an Organized Health Care Education/Training Program; Visit Provider Student in an Organized Health Care Education/Training Program
DX: Z01.818 Encounter for other preprocedural examination (principal); E11.9 Type 2 diabetes mellitus without complications
CPT/HCPCS: 36415; 80048; 83036; 85025; 93005